=== PATIENT | female | born 1995 | race Hispanic/Latino ===

== ENCOUNTER 2017-09-21 16:34 | Emergency (ER) | payer OTHER ==
--- NOTE | 2017-09-21 18:00 | OBHP ---
Datetime: 09/21/2017 17:42 IP Adm Impression: , intrauterine IP Admit Plan: Observation/Evaluation; Discharge home Admit Comment, IP Provider: Patient is a @ 34wks with increased abdominal cramps, vaginal itchi ng/discharge. NO bleeding, no leaking, +FM. Patient reports she was treated for BV in the clinic with Metronidazole a few weeks ago. Patient on exam possibly has a yeast infection. no fever, no dysuria, no fundal tenderness, no evidence of chorio. VE=Closed/thick/high. CPZ=661 mod pam, +accels, no dece ls. TOCO= ctxning q 6 mins. Patient ruled out for labor, no other severe signs/symtpoms Pelvic Type - PN: Adequate Extremities - PN: Normal Abdomen - PN: Normal Back - PN: Normal Breast - PN: Normal Lungs - PN: Normal Heart - PN: Normal Thyroid - PN: Normal Neurologic - PN: Normal HEENT - PN: Normal General - PN: Normal FHR - Baseline A Provider: 130 Contraction Comments Provider: q 6 mins Comments, ACOG Physical Exam: increased whitish/greenish discharge IP Chief Complaint: Uterine contractions NICHD Variability Prov Fetus A: Moderate 6-25bpm NICHD Accel Fetus A IP Provider: [id number] NICHD Decel Fetus A IP Provider: None Dilatation, Provider: closed Effacement, Provider: thick Station, Provider: high Genitourinary Exam: Abnormal DTRs - PN: Normal
--- NOTE | 2017-09-21 18:02 | OBDCSUM ---
Datetime: 09/21/2017 17:38 Discharged to, Provider: Home Follow up at, Provider: Jennifer Conde 2, Dr Disch Instr Activity: Normal activity Disch Instr Diet: Regular Discharge Time: 09/21/2017 17:50 Disch Referrals: None Discharge Diagnosis Prov Other: false labor
[2017-09-24 14:50] VITALS: BP 127/83; PULSE 99; RESP 18
== END 2017-09-21 17:50 | disposition home or self-care (01) ==
LOC: H.EROB2 16:34
DX: O34.60 Maternal care for abnormality of vagina, unspecified trimester (principal); N89.8 Other specified noninflammatory disorders of vagina; Z3A.34 34 weeks gestation of pregnancy; O47.03 False labor before 37 completed weeks of gestation, third trimester

== ENCOUNTER 2018-10-01 16:54 | Emergency (ER) | payer OTHER ==
[2018-10-01 19:03] LABS: BASO % 0.5 % (0.0-2.0); EOS # 0.1 K/uL (0.0-0.7); EOS % 0.8 % (0.0-4.0); HEMOGLOBIN 13.4 g/dL (12.0-16.0); LYMPH # 3.6 K/uL (1.0-4.3); LYMPH % 33.8 % (20.0-40.0); MEAN CELL VOLUME 80.3 fl (81.0-99.0); MEAN CORPUSCULAR HEMOGLOBIN 25.4 pg (27.0-31.0); MEAN CORPUSCULAR HGB CONC 31.7 g/dL (33.0-37.0); MEAN PLATELET VOLUME 9.1 fl (7.2-11.7); MONO # 0.8 K/uL (0.0-0.8); MONO % 7.7 % (0.0-10.0); NEUT % 57.2 % (50.0-75.0); NRBC % 0.1 % (0.0-0.0); RBC 5.27 Mil/uL (3.80-5.20); RED CELL DISTRIBUTION WIDTH 14.4 % (11.5-14.5); WHITE BLOOD COUNT 10.5 K/uL (4.8-10.8)
[2018-10-01 19:07] LABS: ALB/GLOB RATIO 1.5 (1.0-2.1); ALBUMIN 4.7 g/dL (3.5-5.0); ALT/SGPT 26 U/L (9-52); AST/SGOT 23 U/L (14-36); BLOOD UREA NITROGEN 14 mg/dl (7-17); CALCIUM 9.2 mg/dL (8.4-10.2); GFR NON-AFRICAN AMERICAN > 60
--- NOTE | 2018-10-01 19:37 | ED PDOC ---
HPI: Chest Pain Time Seen by Provider: 10/01/18 18:31 Chief Complaint (Nursing): Palpitations Chief Complaint (Provider): Palpitations History Per: Patient History/Exam Limitations: no limitations Onset/Duration Of Symptoms: Days (x1) Additional Complaint(s): 22 y/o female presents to the ED complaining of 3 episodes of palpitations today, each last 2-3 minutes. Patient states that during these episodes her heart rate increases to lower 100s associated with lightheadedness, feeling faint, and shortness of breath. Patient is currently asymptomatic. Last time she had an episode was at around 16:30. Patient denies chest pain, focal weakness, or blurry vision. Patient reports an associated headache. Of note, patient had a medical history of hypothyroidism but after her last her lab work showed normal thyroid so she has not taken thyroid medication in over a year. Past Medical History Reviewed: Historical Data, Nursing Documentation, Vital Signs Vital Signs: Last Vital Signs Temp 98.6 F 10/01/18 17:00 Pulse 88 10/01/18 17:00 Resp 18 10/01/18 17:00 BP 133/80 10/01/18 17:00 Pulse Ox 100 10/01/18 17:00 - Medical History PMH: Hypothyroidism, Migraine (progressive ARENAS) - Surgical History Surgical History: No Surg Hx - Family History Family History: States: CAD, Diabetes, Hypertension, Other Other Family History: Hypercholesterolemia - Social History Current smoker - smoking cessation education provided: No Alcohol: Social (once in 2 weeks) Drugs: Denies - Home Medications Home Medications: Ambulatory Orders Medication Instructions Recorded traMADol [Ultram] 50 mg PO Q6 PRN #16 tab 10/14/15 Nitrofurantoin Macrocrystals 100 mg PO BID #10 cap 02/21/16 [Macrobid] Levothyroxine [Synthroid] 100 mcg PO DAILY #30 tab 10/01/18 - Allergies Allergies/Adverse Reactions: Allergies Allergy/AdvReac Type Severity Reaction Status Date / Time Penicillins Allergy RASH Verified 10/01/18 17:00 Review of Systems ROS Statement: Except As Marked, All Systems Reviewed And Found Negative (as per HPI otherwise negative) Eyes: Negative for: Vision Change Cardiovascular: Positive for: Palpitations. Negative for: Chest Pain Respiratory: Positive for: Shortness of Breath Neurological: Positive for: Headache, Dizziness (lightheadedness and feeling faint). Negative for: Weakness Physical Exam - Reviewed Nursing Documentation Reviewed: Yes Vital Signs Reviewed: Yes - Physical Exam Appears: Positive for: Non-toxic, No Acute Distress Head Exam: Positive for: ATRAUMATIC, NORMOCEPHALIC Skin: Positive for: Warm, Dry Eye Exam: Positive for: EOMI, PERRL ENT: Negative for: Pharyngeal Erythema, Tonsillar Exudate Neck: Positive for: Painless ROM, Supple Cardiovascular/Chest: Positive for: Regular Rate, Rhythm, Chest Non Tender. Negative for: Murmur Respiratory: Positive for: Normal Breath Sounds. Negative for: Wheezing Gastrointestinal/Abdominal: Negative for: Distended Extremity: Positive for: Normal ROM. Negative for: Deformity Lymphatic: Negative for: Adenopathy Neurologic/Psych: Positive for: Alert. Negative for: Motor/Sensory Deficits - Laboratory Results Result Diagrams: 10/01/18 18:53 10/01/18 18:53 - ECG ECG Rhythm: Positive for: Normal QRS, Normal ST Segment, Sinus Rhythm Rate: 81 O2 Sat by Pulse Oximetry: 100 (RA) Pulse Ox Interpretation: Normal Medical Decision Making Medical Decision Making: Time: 18:41 Initial Impression: Palpitations Differential included but not limited to electrolyte abnormality, thyroid dysfunction, anemia, stress, dehydration Initial Plan: * EKG * CMP * Free T4 * Magnesium * Phosphorous * T3 * TSH * CBC w/ diff Labs c/w hypothyroid. Will restart levothyroxine. Pt to followup with mahendra. Scribe Attestation: Documented by Genaro Ricci acting as a scribe for Pallavi Brown MD Provider Scribe Attestation: All medical record entries made by the Scribe were at my direction and personally dictated by me. I have reviewed the chart and agree that the record accurately reflects my personal performance of the history, physical exam, medical decision making, and the department course for this patient. I have also personally directed, reviewed, and agree with the discharge instructions and d isposition. Disposition - Clinical Impression Clinical Impression: Hypothyroid, Palpitations - Disposition Referrals: Max Landon MD [Family Provider] - 10/02/18 Disposition: Routine/Home Disposition Time: 20:00 Condition: STABLE Prescriptions: Levothyroxine [Synthroid] 100 mcg PO DAILY #30 tab Instructions: Hypothyroidism (Underactive Thyroid) (DC), Palpitations (DC) Forms: [facility] School/Work Excuse
[2018-10-01 19:40] LABS: T3 1.26 nmol/L (1.49-2.60)
[2018-10-01 20:27] VITALS: BP 116/78; RESP 16; TEMP 98.9
[2018-10-01 21:21] VITALS: PULSE 81; O2SAT 100
--- NOTE | 2018-10-02 08:46 | CARD ---
APPROVED REPORT Date of service: 10/01/2018 EKG Measurement Heart [id number] <Conclusion> Normal sinus rhythm Normal ECG
== END 2018-10-01 21:25 | disposition home or self-care (01) ==
LOC: H.ER 16:54
DX: R00.2 Palpitations (principal); E03.9 Hypothyroidism, unspecified